=== PATIENT | male | born 1980 | race Caucasian/White ===

== ENCOUNTER 2018-03-25 11:41 | Outpatient (CLI) | payer MEDICAID, SELFPAY ==
[2018-03-25 12:49] LABS: ALT 94 U/L (12-78); AST 89 U/L (15-37); Albumin 3.7 g/dL (3.4-5.0); Alkaline Phosphatase 80 U/L (46-116); Anion Gap 5.4 mmol/L (3-11); BUN 9 mg/dL (7-18); Bilirubin, Total 0.5 mg/dL (0.2-1.0); CO2 29.6 mmol/L (21.0-32.0); CREATININE 0.74 mg/dL (0.70-1.30); Calcium 9.1 mg/dL (8.5-10.1); Chloride 103 mmol/L (98-107); Glucose 89 mg/dL (70-100); Potassium 4.8 mmol/L (3.5-5.1); Sodium 138 mmol/L (136-145)
[2018-05-07 09:30] LABS: HCV RNA Detection Quantitative Undetected IU/mL (UNDECT)
== END 2018-03-25 12:01 ==
PROVIDERS: PCP Emergency Medicine; Visit Provider Nurse Practitioner Family
DX: B18.2 Chronic viral hepatitis C (principal)
CPT/HCPCS: 36415; 80053; 86803; 87522

== ENCOUNTER 2018-04-11 17:41 | Emergency (ER) | payer MEDICAID, SELFPAY ==
[2018-04-11 17:47] VITALS: BP 143/75; PULSE 91; RESP 14; TEMP 37.4; O2SAT 99
[2018-04-11] MEDS: Clindamycin 150 MG CAP 450 MG PO ×2 (18:31→18:37)
--- NOTE | 2018-04-11 18:39 | W.ED.GENAD ---
Discharge Plan Disposition Patient Disposition: HOME Condition: Good Discharge Details Chief Complaint: Cellulitis Clinical Impression: Cellulitis Primary Care Provider: Bharat Mccauley ED Provider: Domenico Escamilla Home Meds and New Rx's Prescriptions: New clindamycin HCl 150 mg capsule 450 mg PO TID 7 Days Qty: 63 RF: 0 Discharge Instructions Instructions: Cellulitis (ED) Additional Instructions: Please take the clindamycin as directed. If you notice any worsening of your symptoms, or any new symptoms such as spreading of the redness, worsening pain, vomiting, diarrhea, fever, chills, shortness of breath, chest pain, numbness, weakness, or fainting , please return immediately to the emergency department for reevaluation. Please follow up with your primary care provider as soon as possible for reassessment and reevaluation. As always, it was a pleasure participating in your medical care today. Referrals: Bharat Mccauley, [Primary Care Provider] - Medical Decision Making This is a 38-year-old male who presents for evaluation of abscesses. On his right lower extremity he demonstrates 2 areas of cellulitis the lateral aspect of his right knee, and distal to this on his mid montes. Patient has no fever, vital signs are stable, no tachycardia. Bedside ultrasound demonstrates very minimal fluid collection, no large fluctuant abscess. With no active drainage, small needle was inserted into each abscess after cleaning and sterilizing the skin, the small amount of purulent discharge was exuded, and this was cultured. No evidence of fluctuance on repeat exam. Patient does demonstrate mild spreading cellulitis surrounding these. He denies any trauma, he does have a history of abscesses in the past that which have responded to doxycycline. I do feel that the patient is at risk for MRSA with his history of IV drug use, although he denies any needle injection in these locations. Patient denies any other systemic symptoms. Patient will be started on clindamycin, he will be given his first dose here, a second dose to go home with, and then a prescription for continued home use. I had a long discussion with him regarding red flags which to return, including the importance of close and prompt return if you notice any spreading of redness outside the area of tracing that we performed on his redness. I have extensively reviewed the treatment plan and discharge instructions with the patient. I have addressed all patient concerns at this time. The patient was made aware of what symptoms to monitor for that would warrant a return to the emergency department. Discussed the plan with the patient, they demonstrate verbal understanding and agreement with our assessment and plan at this time. HPI General Date/Time Provider Initiated Documentation: 04/11/18 17:42. HPI Narrative: This is a 38-year-old male with a past medical history of IV and illicit drug use who presents today for abscess on his right lower extremity. He has had abscesses in the past, is use doxycycline for treatment of these. Patient states that for the last 3-4 days he has noted redness and swelling on his right lower extremity, 2 locations in particular one over the lateral aspect of his right knee and the second over his montes. He did state that he tried to pick at it and was able to get off some drainage, but because of the redness he decided to come in for further evaluation. He denies any fever, he does admit to pain over those locations but no pain in the knee itself. He denies any history of HIV, and he denies any injection in those areas. Patient denies any other complaints at this time, including numbness, tingling, weakness, chest pain, shortness of breath. Patient denies any recent surgeries. Related Data Home Medications Medication Instructions Recorded Confirmed clindamycin HCl 450 mg PO TID 7 Days #63 cap 04/11/18 Previous Rx's Medication Instructions Recorded clindamycin HCl 450 mg PO TID 7 Days #63 cap 04/11/18 Allergies Allergy/AdvReac Type Severity Reaction Status Date / Time No Known Allergies Allergy Unverified 04/11/18 17:49 General Stated Complaint: Cellulitis BERNICE: 3 Review of Systems Review of Systems All systems reviewed & are unremarkable except as noted in HPI and below [facility] Social History Smoking/Tobacco Use Status: Current every day Exam Narrative Exam Narrative: 1.Const: Well-nourished, Well-developed, appearing stated age 2.Eyes: PERRL, no conjunctival injection, and symmetrical lids. 3.ENT: Atraumatic external nose and ears. Moist MM. Neck: Symmetric, trachea midline, No thyromegaly. 4.CVS: +S1/S2, No murmurs or gallops. Peripheral pulses 2+ and equal in all extremities. Brisk capillary refill in all extremities. 5.RESP: Unlabored respiratory effort. Clear to auscultation bilaterally. No wheezes rales or rhonchi 6.GI: Soft, Nontender/Nondistended, No hepatosplenomegaly. No guarding or rebound. 7.MSK: Normocephalic/Atraumatic, Extremities w/o deformity or ttp No cyanosis or clubbing, Normal movement of all extremities including of the right knee. No significant tenderness with movement. He does have tenderness on palpation of the cellulitic lesion itself on the lateral aspect of the right knee. There is also evidence of cellulitis in the mid montes. There is a small eschar in this area, where the patient had previously tried to pick away. No active drainage at this time. Minimal fluctuance noted over both locations. No signs of large abscess. The area has about 6 cm of erythema surrounding the abscess free dislocation. Compartments are soft. Capillary refill is brisk in all distal extremities. 8.Skin: Warm, Dry. Please see musculoskeletal for description of cellulitis. 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 Sensation grossly intact, no focal neurologic deficits. 10.Psych: (AAO) x3. Appropriate mood and affect Course Vital Signs Temperature 37.4 C 04/11/18 17:47 Pulse 91 H 04/11/18 17:47 Respiratory Rate 14 04/11/18 17:47 Blood Pressure 143/75 H 04/11/18 17:47 Pulse Oximetry 99 04/11/18 17:47 Temperature 37.4 C 04/11/18 17:47 Temperature Source Temporal Artery Scan 04/11/18 17:47 Pulse 91 H 04/11/18 17:47 Respiratory Rate 14 04/11/18 17:47 Respiratory Effort Non-Labored 04/11/18 17:48 Blood Pressure 143/75 H 04/11/18 17:47 Blood Pressure Position Sitting 04/11/18 17:47 Pulse Oximetry 99 04/11/18 17:47 Oxygen Delivery Method Room Air 04/11/18 17:47 Oxygen Flow Rate 0 04/11/18 17:47 Pain Level 6 04/11/18 17:47 Lab/Test Results Lab/Test Results: 04/11/18 18:33 Knee - Right Wound Culture - Pending 04/11/18 18:33 Knee - Right Gram Stain - Pending
== END 2018-04-11 18:54 | disposition home or self-care (01) ==
PROVIDERS: Emergency Provider Student in an Organized Health Care Education/Training Program; PCP Emergency Medicine
DX: L03.115 Cellulitis of right lower limb (principal)
CPT/HCPCS: 87077; 99283; 87070; 87186; 87205

== ENCOUNTER 2020-06-08 15:53 | Outpatient (REF) | payer MEDICAID, SELFPAY ==
[2020-06-08 22:26] LABS: Abs Immature Grans 0.03 10^3/uL (0.0-0.06); Absolute Basophil Count 0.08 10^3/uL (0.0-0.2); Absolute Lymphocyte Count 2.42 10^3/uL (1.2-3.4); Absolute Monocyte Count 0.42 10^3/uL (0.1-0.8); Absolute Neutrophil Count 3.69 10^3/uL (1.2-6.7); Basophils % 1.2; Eosinophils % 4.3; HCT 39.3 % (40.0-50.0); HGB 13.6 g/dL (13.5-17.5); Immature Grans % 0.4; Lymphocytes % 34.9; MCH 30.7 pg (27.0-33.0); MCHC 34.6 % (32.0-36.0); MCV 88.7 fL (80-95); MPV 11.7 fL (8.0-11.0); Monocytes % 6.1; Neutrophils % 53.1; Nucleated RBC 0 %; Platelet Count 224 10^3/uL (130-400); RBC 4.43 10^6/uL (4.36-5.78); RDW 12.3 % (11.8-14.1); RDW-SD 39.8 fL; WBC 6.94 10^3/uL (4.4-10.8)
[2020-06-08 22:41] LABS: ALT 34 U/L (16-63); AST 56 U/L (15-37); Albumin 4.2 g/dL (3.4-5.0); Alkaline Phosphatase 71 U/L (46-116); BUN 16 mg/dL (7-18); Chloride 104 mmol/L (98-107); Glucose 79 mg/dL (74-106); Potassium 4.4 mmol/L (3.5-5.1); Sodium 140 mmol/L (136-145); TSH (W/Ref FT4) 1.97 uIU/mL (0.36-3.74); Total Protein 7.5 g/dL (6.4-8.2)
[2020-06-10 12:36] LABS: Hepatitis A Antibody IgM Negative (Negative); Hepatitis B Core Antibody Positive (Negative); Hepatitis B surface Ag Positive (Negative); Hepatitis C Ab w Rflx HCV PCR Reactive (Negative)
[2020-06-11 13:51] LABS: HCV RNA Qualitative Undetected (Undetected)
[2020-06-11 22:09] LABS: HBc IgM Ab, S Negative (Negative)
== END 2020-06-08 15:54 | disposition home or self-care (01) ==
LOC: NCHCN 15:53
PROVIDERS: Visit Provider Nurse Practitioner Family
DX: R53.83 Other fatigue (principal); M25.511 Pain in right shoulder; F19.21 Other psychoactive substance dependence, in remission
CPT/HCPCS: 80053; 86704; 86709; 86803; 87340; 87522; 84443; 85025; 86705

== ENCOUNTER 2021-09-14 04:02 | Emergency (ER) | payer MEDICAID, SELFPAY ==
[2021-09-14 04:14] VITALS: BP 153/93; PULSE 100; RESP 18; TEMP 36.9; O2SAT 99
--- NOTE | 2021-09-14 04:25 | ED.GENADUL_ITS ---
Discharge Plan Disposition Patient Disposition: HOME Condition: Good Discharge Details Clinical Impression: Rash Primary Care Provider: Unknown,Unknown ED Provider: Domenico Escamilla Home Meds and New Rx's Prescriptions: New diphenhydramine HCl [Benadryl] 25 mg capsule 25 mg PO Q6H Qty: 100 0RF loratadine [Loradamed] 10 mg tablet 10 mg PO DAILY Qty: 10 0RF clotrimazole-betamethasone 1-0.05 % lotion 1 applic topical BID Qty: 30 0RF ivermectin 3 mg tablet 13,608 mcg PO ONCE 2 Days Qty: 9 0RF Rx Instructions: For 4.5 tablets on first day, and then take the remainder of the tablet 2 weeks later. Continued gabapentin 800 mg tablet 800 tab PO QID Label Comments: TAKE 1 TABLET BY MOUTH FOUR TIMES DAILY olanzapine 15 mg tablet 1 tab PO PRN PRN Label Comments: TAKE ONE TABLET BY MOUTH AT BEDTIME dexmethylphenidate 40 mg capsule,ER biphasic 50-50 40 cap PO DAILY Label Comments: TAKE ONE CAPSULE BY MOUTH ONCE A DAY buprenorphine-naloxone [Suboxone] 4-1 mg film 1 film sublingual DAILY Label Comments: PLACE ONE FILM UNDER THE TONGUE EVERY DAY Discharge Instructions Instructions: Acute Rash (ED) Additional Instructions: At this time your symptoms are concerning for dermatitis. It is uncertain as to what the exact cause/etiology of the rash is at this time. Please take the Benadryl and loratadine as directed. You have also been given a prescription for cream. Please apply to the affected areas. Please stop scraping the skin to allow those areas to heal. If your symptoms do not resolve after 5 to 6 days of this treatment, or you develop multiple new lesions, there may be a chance that it could be an infection related to bedbug or other small parasites. If you do not have improvement after 5 to 6 days, take the ivermectin as directed.. If you still do not have any improvement of your symptoms please return for reassessment reevaluation. Please wash all of your linens in hot water and dry them in the dryer on high heat. If you notice any worsening of your symptoms, or any new symptoms such as vomiting, diarrhea, fever, chills, shortness of breath, chest pain, numbness, weakness, or fainting , please return immediately to the emergency department for reevaluation. Please follow up with your primary care provider as soon as possible for reassessment and reevaluation. As always, it was a pleasure participating in your medical care today. Medical Decision Making This is a 41-year-old male with a past medical history of methadone use, who presents today for evaluation of rash. Patient states that for the last 2 to 3 days he has noticed a rash that has been present over his arms legs and somewhat on his chest. He states that it is slightly itchy. He states that if he peels off the top layer of the skin he is concerned that occasionally he might see a worm underneath. The patient states that he has been scratching off the top layer of skin for each of these lesions that they pop up. He denies any vesicles. He denies any oral lesions or genital lesions. He denies any new soaps or creams. Patient does state that he is now living in a camper which he bought for a really cheap malave, and it might have sketch stuff in it. He denies any new animals. He denies any other significant others with similar lesions. 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 He denies fever or chills. He denies any IV or illicit drug use. He denies any needles in his locations. He denies any recent foreign travel to [facility] [facility] or [place]. No other complaints at this time. No other modifying factors. Physical exam demonstrates 30 or 40 scattered lesions over his arms primarily, and a few on his legs and shoulders and upper chest. Lesions are difficult to fully describe, the majority of them have the top layer of skin completely scraped off which was self-induced. However there do appear to be a few original lesion which looked more like a contact dermatitis with a slight scabbed area over top. Each lesion is about 5 mm in diameter. No bleeding or surrounding erythema. Differential includes a contact dermatitis secondary to his extensive work outside as a pattern appears to be mostly located on his upper extremities. However with the new camper that he now lives in, there is certainly risk for exposure to bedbugs and much less likely scabies. There does not appear to be any significant rash in the intertriginous areas. Symptoms appear inconsistent with syphilis. At this time we will recommend antihistamine orally, and will give a steroid/fungal dual action cream. Recommend treatment with his for 5 to 7 days. If no improvement is noted, we will give ivermectin for potential parasitic/scabies treatment but I did tell the patient that I would recommend reassessment before this is the rash changes or develops any other characteristics. No current clinical evidence of staph scalded skin syndrome, erythema multiforme, erythema migrans, toxic epidermal necrolysis, Roman-Riley syndrome, Kawasaki-like rash, meningococcemia, pemphigus vulgaris, or necrotizing fasciitis. I have extensively reviewed the treatment plan and discharge instructions with the patient. I have addressed all patient concerns at this time. The patient was made aware of what symptoms to monitor for that would warrant a return to the emergency department. Discussed the plan with the patient, they demonstrate verbal understanding and agreement with our assessment and plan at this time. The documentation in this chart was dictated using [employer] dictation software. Please excuse any dictation errors. HPI General Date/Time Provider Initiated Documentation: 09/14/21 04:04 . HPI Narrative: This is a 41-year-old male with a past medical history of methadone use, who presents today for evaluation of rash. Patient states that for the last 2 to 3 days he has noticed a rash that has been present over his arms legs and somewhat on his chest. He states that it is slightly itchy. He states that if he peels off the top layer of the skin he is concerned that occasionally he might see a worm underneath. The patient states that he has been scratching off the top layer of skin for each of these lesions that they pop up. He denies any vesicles. He denies any oral lesions or genital lesions. He denies any new soaps or creams. Patient does state that he is now living in a camper which he bought for a really cheap mal[place], and it might have sketch stuff in it. He denies any new animals. He denies any other significant others with similar lesions. 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 He denies fever or chills. He denies any IV or illicit drug use. He denies any needles in his locations. He denies any recent foreign travel to [facility] [facility] or [place] already been [place]. No other complaints at this time. No other modifying factors. Related Data Home Medications Medication Instructions Recorded Confirmed buprenorphine 4 mg-naloxone 1 mg 1 film sublingual DAILY 09/14/21 09/14/21 sublingual film (Suboxone) clotrimazole-betamethasone 1 1 applic topical BID #30 mL 09/14/21 %-0.05 % lotion dexmethylphenidate 40 mg 40 cap PO DAILY 09/14/21 09/14/21 capsule,extended release [id number] diphenhydramine HCl 25 mg capsule 25 mg PO Q6H #100 caps 09/14/21 (Benadryl) gabapentin 800 mg tablet 800 tab PO QID 09/14/21 09/14/21 ivermectin 3 mg tablet 13,608 mcg PO ONCE 2 days #9 tabs 09/14/21 loratadine 10 mg tablet (Loradamed) 10 mg PO DAILY #10 tabs 09/14/21 olanzapine 15 mg tablet 1 tab PO PRN PRN 09/14/21 09/14/21 Previous Rx's Medication Instructions Recorded clotrimazole-betamethasone 1 1 applic topical BID #30 mL 09/14/21 %-0.05 % lotion diphenhydramine HCl 25 mg capsule 25 mg PO Q6H #100 caps 09/14/21 (Benadryl) ivermectin 3 mg tablet 13,608 mcg PO ONCE 2 days #9 tabs 09/14/21 loratadine 10 mg tablet (Loradamed) 10 mg PO DAILY #10 tabs 09/14/21 Allergies Allergy/AdvReac Type Severity Reaction Status Date / Time No Known Allergies Allergy Unverified 09/14/21 04:25 General Stated Complaint: RashLesion BERNICE: 4 Review of Systems All systems reviewed & are unremarkable except as noted in HPI and below PFSH All Active Problems Rash (Acute) Social History Smoking/Tobacco Use Status: Current every day Smoking risk assessment performed?: Yes Alcohol Intake: former Drug use: Never Substance use type: does not use and former substance user Do you feel safe at home: Yes Do you feel safe in your relationship?: Yes Exam Narrative Exam Narrative: 1.Const: Well-nourished, Well-developed, appearing stated age 2.Eyes: PERRL, no conjunctival injection, and symmetrical lids. 3.ENT: Atraumatic external nose and ears. Moist MM. Neck: Symmetric, trachea midline, No thyromegaly. 4.CVS: +S1/S2, No murmurs or gallops. Peripheral pulses 2+ and equal in all extremities. Brisk capillary refill in all extremities. 5.RESP: Unlabored respiratory effort. Clear to auscultation bilaterally. No wheezes rales or rhonchi 6.GI: Soft, Nontender/Nondistended, No hepatosplenomegaly. No guarding or rebound. 7.MSK: Normocephalic/Atraumatic, Extremities w/o deformity or ttp No cyanosis or clubbing, Normal movement of all extremities 8.Skin: Warm, Dry. Patient demonstrates about 30 or 40 scattered lesions over his arms primarily, and a few on his legs and shoulders and upper chest. Lesions are difficult to fully describe, the majority of them have the top layer of skin completely scraped off which was self-induced. However there do appear to be a few original lesion which looked more like a contact dermatitis with a slight scabbed area over top. Each lesion is about 5 mm in diameter. No b leeding or surrounding erythema. Negative Nikolsky sign. No large vesicles or bulla. No palpable purpura. No oral lesions. No mucosal lesions. No genital lesions. No evidence of severe cellulitis. No evidence of vaccine preventable rash. 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 Sensation grossly intact, no focal neurologic deficits. 10.Psych: (AAO) x3. Appropriate mood and affect Course Vital Signs Vital signs: Vital Signs Temperature 36.9 C 09/14/21 04:14 Pulse 100 H 09/14/21 04:14 Respiratory Rate 18 09/14/21 04:14 Blood Pressure 153/93 H 09/14/21 04:14 Pulse Oximetry 99 09/14/21 04:14 Temperature 36.9 C 09/14/21 04:14 Pulse 100 H 09/14/21 04:14 Respiratory Rate 18 09/14/21 04:14 Blood Pressure 153/93 H 09/14/21 04:14 Pulse Oximetry 99 09/14/21 04:14 Pain Level 0 09/14/21 04:14
== END 2021-09-14 04:48 | disposition home or self-care (01) ==
PROVIDERS: Emergency Provider Student in an Organized Health Care Education/Training Program
DX: R21 Rash and other nonspecific skin eruption (principal)
CPT/HCPCS: 99283

== ENCOUNTER 2021-09-14 22:39 | Emergency (ER) | payer MEDICAID, SELFPAY ==
[2021-09-14 23:07] VITALS: BP 136/85; PULSE 79; RESP 18; TEMP 36.1; O2SAT 98
--- NOTE | 2021-09-14 23:40 | ED.GENADUL_ITS ---
Discharge Plan Discharge Details Chief Complaint: RashLesion Primary Care Provider: Unknown,Unknown ED Provider: Randy Fontaine Home Meds and New Rx's Prescriptions: No Action gabapentin 800 mg tablet 800 tab PO QID Label Comments: TAKE 1 TABLET BY MOUTH FOUR TIMES DAILY olanzapine 15 mg tablet 1 tab PO PRN PRN Label Comments: TAKE ONE TABLET BY MOUTH AT BEDTIME dexmethylphenidate 40 mg capsule,ER biphasic 50-50 40 cap PO DAILY Label Comments: TAKE ONE CAPSULE BY MOUTH ONCE A DAY buprenorphine-naloxone [Suboxone] 4-1 mg film 1 film sublingual DAILY Label Comments: PLACE ONE FILM UNDER THE TONGUE EVERY DAY diphenhydramine HCl [Benadryl] 25 mg capsule 25 mg PO Q6H Qty: 100 0RF loratadine [Loradamed] 10 mg tablet 10 mg PO DAILY Qty: 10 0RF clotrimazole-betamethasone 1-0.05 % lotion 1 applic topical BID Qty: 30 0RF ivermectin 3 mg tablet 13,608 mcg PO ONCE 2 Days Qty: 9 0RF Rx Instructions: For 4.5 tablets on first day, and then take the remainder of the tablet 2 weeks later. HPI General Date/Time Provider Initiated Documentation: 09/14/21 23:06 . HPI Narrative: My initial evaluation of the patient was in the triage room. Following this evaluation Patient with examined him once history is complete. I looked for the patient three times in the waiting room but it appears that he had left. review of Dr Escamilla's note from earlier today, reveals that his HPI and ROS did nmot change. The examinatin of his skin in the TR was also c/w Dr Escamilla's eval. Patient LBCT. The Related Data Home Medications Medication Instructions Recorded Confirmed buprenorphine 4 mg-naloxone 1 mg 1 film sublingual DAILY 09/14/21 09/14/21 sublingual film (Suboxone) clotrimazole-betamethasone 1 1 applic topical BID #30 mL 09/14/21 %-0.05 % lotion dexmethylphenidate 40 mg 40 cap PO DAILY 09/14/21 09/14/21 capsule,extended release [id number] diphenhydramine HCl 25 mg capsule 25 mg PO Q6H #100 caps 09/14/21 (Benadryl) gabapentin 800 mg tablet 800 tab PO QID 09/14/21 09/14/21 ivermectin 3 mg tablet 13,608 mcg PO ONCE 2 days #9 tabs 09/14/21 loratadine 10 mg tablet (Loradamed) 10 mg PO DAILY #10 tabs 09/14/21 olanzapine 15 mg tablet 1 tab PO PRN PRN 09/14/21 09/14/21 Previous Rx's Medication Instructions Recorded clotrimazole-betamethasone 1 1 applic topical BID #30 mL 09/14/21 %-0.05 % lotion diphenhydramine HCl 25 mg capsule 25 mg PO Q6H #100 caps 09/14/21 (Benadryl) ivermectin 3 mg tablet 13,608 mcg PO ONCE 2 days #9 tabs 09/14/21 loratadine 10 mg tablet (Loradamed) 10 mg PO DAILY #10 tabs 09/14/21 Allergies Allergy/AdvReac Type Severity Reaction Status Date / Time No Known Allergies Allergy Unverified 09/14/21 23:12 General Stated Complaint: RashLesion BERNICE: 4 PFSH All Active Problems Rash (Acute) Social History Smoking/Tobacco Use Status: Current every day Tobacco Type: cigarettes Smoking risk assessment performed?: Yes Alcohol Intake: former Drug use: Never Substance use type: does not use and former substance user Details: Patient is on Suboxone Do you feel safe at home: Yes Do you feel safe in your relationship?: Yes Course Vital Signs Vital signs: Vital Signs Temperature 36.1 C L 09/14/21 23:07 Pulse 79 09/14/21 23:07 Respiratory Rate 18 09/14/21 23:07 Blood Pressure 136/85 09/14/21 23:07 Pulse Oximetry 98 09/14/21 23:07 Temperature 36.1 C L 09/14/21 23:07 Temperature Source Temporal Artery Scan 09/14/21 23:07 Pulse 79 09/14/21 23:07 Respiratory Rate 18 09/14/21 23:07 Respiratory Effort Non-Labored 09/14/21 23:10 Blood Pressure 136/85 09/14/21 23:07 Blood Pressure Position Sitting 09/14/21 23:07 Pulse Oximetry 98 09/14/21 23:07 Oxygen Delivery Method Room Air 09/14/21 23:07 Oxygen Flow Rate 0 09/14/21 23:07 Pain Level 0 09/14/21 23:07
== END 2021-09-14 23:43 ==
PROVIDERS: Emergency Provider Emergency Medicine
DX: L98.8 Other specified disorders of the skin and subcutaneous tissue (principal); Z53.29 Procedure and treatment not carried out because of patient's decision for other reasons

== ENCOUNTER 2021-09-24 23:20 | Emergency (ER) | payer MEDICAID, SELFPAY ==
[2021-09-24 23:25] VITALS: BP 152/90; PULSE 102; RESP 16; TEMP 36.8; O2SAT 99
--- NOTE | 2021-09-24 23:50 | ED.GENADUL_ITS ---
Discharge Plan Disposition Patient Disposition: HOME Condition: Good Discharge Details Clinical Impression: Rash Primary Care Provider: Unknown,Unknown ED Provider: Domenico Escamilla Home Meds and New Rx's Prescriptions: New permethrin 5 % cream 1 applic topical Q14D Qty: 60 0RF Rx Instructions: apply second treatment 14 days after first treatment if live lice remain ivermectin 3 mg tablet 12 mg PO ONCE 1 Days Qty: 4 0RF No Action gabapentin 800 mg tablet 800 tab PO QID Label Comments: TAKE 1 TABLET BY MOUTH FOUR TIMES DAILY olanzapine 15 mg tablet 1 tab PO PRN PRN Label Comments: TAKE ONE TABLET BY MOUTH AT BEDTIME dexmethylphenidate 40 mg capsule,ER biphasic 50-50 40 cap PO DAILY Label Comments: 40 mg in am and 25 mg in afternnon buprenorphine-naloxone [Suboxone] 4-1 mg film 1 film sublingual DAILY Label Comments: PLACE ONE FILM UNDER THE TONGUE EVERY DAY diphenhydramine HCl [Benadryl] 25 mg capsule 25 mg PO Q6H Qty: 100 0RF loratadine [Loradamed] 10 mg tablet 10 mg PO DAILY Qty: 10 0RF clotrimazole-betamethasone 1-0.05 % lotion 1 applic topical BID Qty: 30 0RF Discharge Instructions Instructions: Acute Rash (ED) Additional Instructions: Please take the next dose of ivermectin in 2 weeks. It has been sent to your pharmacy. Please use the permethrin cream as directed. It is also been sent to your pharmacy. This is the antiparasitic cream. You have been given a tube of mupirocin ointment. Please apply this to each lesion every day to prevent any bacterial infection. If you still have a persistent rash after 2-week you will need to see a remote advisor for a skin biopsy for further evaluation. If you notice any worsening of your symptoms, or any new symptoms such as vomiting, diarrhea, fever, chills, shortness of breath, chest pain, numbness, weakness, or fainting , please return immediately to the emergency department for reevaluation. Please follow up with your primary care provider as soon as possible for reassessment and reevaluation. As always, it was a pleasure participating in your medical care today. Medical Decision Making This is a 41-year-old male who presents today for evaluation of rash. 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 Patient was given a steroid antifungal cream and this did not improve his symptoms. He was also given ivermectin orally, and he stated that this notably resolved his rash. Unfortunately after taking this he went to his girlfriend's house, where he thought the initial exposure was from. Shortly after visiting his girlfriend's house his rash recurred. He took the second dose of ivermectin today prior to arrival. He presents for continued rash. He denies any changes otherwise. No other complaints. No oral lesions. No genital complaint Exam demonstrate presence of similar rashes when he first presented. No signs of significant change in nature of the rash. No new location for the rash in regards to general body areas. As the patient had a notable improvement of his symptoms after the oral ivermectin, and unfortunately developed recurrence of his symptoms after visiting his girlfriend placed dwelling, I do feel that continued ivermectin therapy may be indicated in this scenario. I recommended to the patient that he cannot return to his girlfriend's place of dwelling until it has been cleaned of all insects, fleas, or mites. We will give permethrin ointment for home use as well. Will give topical mupirocin ointment for application to each lesion to prevent superinfection. I have extensively reviewed the treatment plan and discharge instructions with the patient. I have addressed all patient concerns at this time. The patient was made aware of what symptoms to monitor for that would warrant a return to the emergency department. Discussed the plan with the patient, they demonstrate verbal understanding and agreement with our assessment and plan at this time. The documentation in this chart was dictated using [employer] dictation software. Please excuse any dictation errors. HPI General Date/Time Provider Initiated Documentation: 09/24/21 23:32 . HPI Narrative: This is a 41-year-old male who presents today for evaluation of rash. 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 Patient was given a steroid antifungal cream and this did not improve his symptoms. He was also given ivermectin orally, and he stated that this notably resolved his rash. Unfortunately after taking this he went to his girlfriend's house, where he thought the initial exposure was from. Shortly after visiting his girlfriend's house his rash recurred. He took the second dose of ivermectin today prior to arrival. He presents for continued rash. He denies any changes otherwise. No other complaints. No oral lesions. No genital complaint Related Data Home Medications Medication Instructions Recorded Confirmed buprenorphine 4 mg-naloxone 1 mg 1 film sublingual DAILY 09/14/21 09/14/21 sublingual film (Suboxone) clotrimazole-betamethasone 1 1 applic topical BID #30 mL 09/14/21 %-0.05 % lotion dexmethylphenidate 40 mg 40 cap PO DAILY 09/14/21 09/14/21 capsule,extended release [id number] diphenhydramine HCl 25 mg capsule 25 mg PO Q6H #100 caps 09/14/21 (Benadryl) gabapentin 800 mg tablet 800 tab PO QID 09/14/21 09/14/21 loratadine 10 mg tablet (Loradamed) 10 mg PO DAILY #10 tabs 09/14/21 olanzapine 15 mg tablet 1 tab PO PRN PRN 09/14/21 09/14/21 ivermectin 3 mg tablet 12 mg PO ONCE 1 day #4 tabs 09/24/21 permethrin 5 % topical cream 1 applic topical Q14D 2 doses #60 09/24/21 grams Previous Rx's Medication Instructions Recorded clotrimazole-betamethasone 1 1 applic topical BID #30 mL 09/14/21 %-0.05 % lotion diphenhydramine HCl 25 mg capsule 25 mg PO Q6H #100 caps 09/14/21 (Benadryl) loratadine 10 mg tablet (Loradamed) 10 mg PO DAILY #10 tabs 09/14/21 ivermectin 3 mg tablet 12 mg PO ONCE 1 day #4 tabs 09/24/21 permethrin 5 % topical cream 1 applic topical Q14D 2 doses #60 09/24/21 grams Allergies Allergy/AdvReac Type Severity Reaction Status Date / Time No Known Allergies Allergy Unverified 09/14/21 23:12 General Stated Complaint: RashLesion BERNICE: 5 Review of Systems All systems reviewed & are unremarkable except as noted in HPI and below PFSH All Active Problems Rash (Acute) Social History Smoking/Tobacco Use Status: Current every day Tobacco Type: cigarettes Smoking risk assessment performed?: Yes Alcohol Intake: former Drug use: Never Substance use type: does not use and former substance user Details: Patient is on Suboxone Do you feel safe at home: Yes Do you feel safe in your relationship?: Yes Exam Narrative Exam Narrative: 1.Const: Well-nourished, Well-developed, appearing stated age 2.Eyes: PERRL, no conjunctival injection, and symmetrical lids. 3.ENT: Atraumatic external nose and ears. Moist MM. Neck: Symmetric, trachea midline, No thyromegaly. 4.CVS: +S1/S2, No murmurs or gallops. Peripheral pulses 2+ and equal in all extremities. Brisk capillary refill in all extremities. 5.RESP: Unlabored respiratory effort. Clear to auscultation bilaterally. No wheezes rales or rhonchi 6.GI: Soft, Nontender/Nondistended, No hepatosplenomegaly. No guarding or rebound. 7.MSK: Normocephalic/Atraumatic, Extremities w/o deformity or ttp No cyanosis or clubbing, Normal movement of all extremities 8.Skin: Warm, Dry. Skin demonstrates varying stages of lesions on the arms and legs. They appear notably picked out. Patient is visibly scraping at the skin in those areas. No evidence of lesion in the intertriginous areas. No oral lesions. There are few scarred lesions that are present on the patient's arms, but appear to be well-healed. Small amount of minimal erythema surrounding each . No large superinfection. Negative Nikolsky sign. No large vesicles or bulla. No palpable purpura. No oral lesions. No mucosal lesions. No evidence of severe cellulitis. No evidence of vaccine preventable rash. 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 Sensation grossly intact, no focal neurologic deficits. 10.Psych: (AAO) x3. Appropriate mood and affect Course Vital Signs Vital signs: Vital Signs Temperature 36.8 C 09/24/21 23:25 Pulse 102 H 09/24/21 23:25 Respiratory Rate 16 09/24/21 23:25 Blood Pressure 152/90 H 09/24/21 23:25 Pulse Oximetry 99 09/24/21 23:25 Temperature 36.8 C 09/24/21 23:25 Temperature Source Skin 09/24/21 23:25 Pulse 102 H 09/24/21 23:25 Respiratory Rate 16 09/24/21 23:25 Respiratory Effort Non-Labored 09/24/21 23:29 Blood Pressure 152/90 H 09/24/21 23:25 Pulse Oximetry 99 09/24/21 23:25 Pain Level 0 09/24/21 23:25
[2021-09-25] MEDS: Mupirocin 2% 15 GM TUBE TP (00:24)
== END 2021-09-25 00:27 | disposition home or self-care (01) ==
PROVIDERS: Emergency Provider Student in an Organized Health Care Education/Training Program
DX: R21 Rash and other nonspecific skin eruption (principal)
CPT/HCPCS: 99283

== ENCOUNTER 2021-10-22 22:34 | Emergency (ER) | payer MEDICAID, SELFPAY ==
[2021-10-22 22:39] VITALS: BP 124/73; PULSE 104; RESP 19; TEMP 36.8; O2SAT 96
--- NOTE | 2021-10-22 22:49 | ED.GENADUL_ITS ---
Discharge Plan Disposition Patient Disposition: HOME Condition: Stable Discharge Details Clinical Impression: Rash Primary Care Provider: Leslie Shane ED Provider: Lars Bee Home Meds and New Rx's Prescriptions: Continued gabapentin 800 mg tablet 800 tab PO QID Label Comments: TAKE 1 TABLET BY MOUTH FOUR TIMES DAILY olanzapine 15 mg tablet 1 tab PO PRN PRN Label Comments: TAKE ONE TABLET BY MOUTH AT BEDTIME dexmethylphenidate 40 mg capsule,ER biphasic 50-50 40 cap PO DAILY Label Comments: 40 mg in am and 25 mg in afternnon buprenorphine-naloxone [Suboxone] 4-1 mg film 1 film sublingual DAILY Label Comments: PLACE ONE FILM UNDER THE TONGUE EVERY DAY diphenhydramine HCl [Benadryl] 25 mg capsule 25 mg PO Q6H Qty: 100 0RF loratadine [Loradamed] 10 mg tablet 10 mg PO DAILY Qty: 10 0RF clotrimazole-betamethasone 1-0.05 % lotion 1 applic topical BID Qty: 30 0RF permethrin 5 % cream 1 applic topical Q14D Qty: 60 0RF Rx Instructions: apply second treatment 14 days after first treatment if live lice remain Discharge Instructions Instructions: Acute Rash (ED) Additional Instructions: Please followup with dermatology. Call Sunday for an appointment. Please contact your primary care physician to arrange follow-up. Return to the ER immediately for any worsening or new concerning symptoms. Referrals: Sami Kelley MD [ CONSULTING PHYSICIAN] - Leslie Shane [Primary Care Provider] - Medical Decision Making 2300 --41-year-old male smoker with history of hepatitis C here with rash. Patient has sparsely distributed shallow ulcers in various stages of healing on his upper extremities bilaterally as well as back and scalp. No significant surrounding erythema. Patient was patient seen here twice last month for the same and was treated with permethrin and ivermectin without resolution. Plan for screening diagnostic labs including syphilis and tick panel as well as general labs. Patient provided informed refusal of diagnostic lab work-up. Plan for discharge with outpatient follow-up with dermatology. I will asked the care management assist in arranging timely follow-up. A medical screening exam was performed today. No acute life-threatening medical condition identified. Patient stable for discharge. Patient left on his own accord prior to receiving discharge instructions. HPI General Mode of arrival: ambulatory . Date/Time Provider Initiated Documentation: 10/22/21 22:40 . Limitations to Documentation: no limitations . Information obtained by: patient . HPI Narrative: 41-year-old male presents with chief complaint of rash. Patient notes he had a rash for over about. He gets lesions all over his body. Most concerning to him right now was adjacent to his left ear. Patient is convinced that he has some sort of parasitic infection that he thinks he is getting from spruce trees. Patient was seen here about a month ago and treated with ivermectin as well as permethrin. He thinks the permethrin may have helped although he has been applying this to some of his lesions without any improvement. He has no associated fever. No chest pain or shortness of breath. No abdominal pain. Patient denies tick bites. He denies drug use. Related Data Home Medications Medication Instructions Recorded Confirmed buprenorphine 4 mg-naloxone 1 mg 1 film sublingual DAILY 09/14/21 10/22/21 sublingual film (Suboxone) clotrimazole-betamethasone 1 1 applic topical BID #30 mL 09/14/21 10/22/21 %-0.05 % lotion dexmethylphenidate 40 mg 40 cap PO DAILY 09/14/21 10/22/21 capsule,extended release [id number] diphenhydramine HCl 25 mg capsule 25 mg PO Q6H #100 caps 09/14/21 10/22/21 (Benadryl) gabapentin 800 mg tablet 800 tab PO QID 09/14/21 10/22/21 loratadine 10 mg tablet (Loradamed) 10 mg PO DAILY #10 tabs 09/14/21 10/22/21 olanzapine 15 mg tablet 1 tab PO PRN PRN 09/14/21 10/22/21 permethrin 5 % topical cream 1 applic topical Q14D 2 doses #60 09/24/21 10/22/21 grams Previous Rx's Medication Instructions Recorded clotrimazole-betamethasone 1 1 applic topical BID #30 mL 09/14/21 %-0.05 % lotion diphenhydramine HCl 25 mg capsule 25 mg PO Q6H #100 caps 09/14/21 (Benadryl) loratadine 10 mg tablet (Loradamed) 10 mg PO DAILY #10 tabs 09/14/21 permethrin 5 % topical cream 1 applic topical Q14D 2 doses #60 09/24/21 grams Allergies Allergy/AdvReac Type Severity Reaction Status Date / Time No Known Allergies Allergy Unverified 09/14/21 23:12 General Stated Complaint: RashLesion BERNICE: 4 Review of Systems All systems reviewed & are unremarkable except as noted in HPI and below Constitutional Constitutional: Denies fever(s) Integumentary/Breasts Skin/Breast: Reports as per HPI PFSH All Active Problems Rash (Acute) Social History Smoking/Tobacco Use Status: Current every day Tobacco Type: cigarettes Smoking risk assessment performed?: Yes Alcohol Intake: former Drug use: Never Substance use type: does not use and former substance user Details: Patient is on Suboxone Do you feel safe at home: Yes Do you feel safe in your relationship?: Yes Exam Const General: cooperative and no acute distress HENMT Mouth: moist mucous membranes Eyes Conjunctivae: normal conjunctivae Sclera: normal sclerae Resp Auscultation: clear to auscultation bilaterally, no rales, no rhonchi and no wheezes Cardio Rate: regular rate and not tachycardic Rhythm: regular rhythm Heart Sounds: no murmurs GI Palpation: soft, not firm, no guarding, no masses, not rigid and nontender Skin General skin exam: no fluctuance and no induration Rashes: rashes noted (Circular 1-2 cm shallow ulcers sparsely distributed on his UEs, back, scalp) Neuro General: patient alert, patient awake and tone normal Extrem General: no edema Course Vital Signs Vital signs: Vital Signs Temperature 36.8 C 10/22/21 22:39 Pulse 104 H 10/22/21 22:39 Respiratory Rate 19 10/22/21 22:39 Blood Pressure 124/73 10/22/21 22:39 Pulse Oximetry 96 10/22/21 22:39 Temperature 36.8 C 10/22/21 22:39 Temperature Source Temporal Artery Scan 10/22/21 22:39 Pulse 104 H 10/22/21 22:39 Respiratory Rate 19 10/22/21 22:39 Blood Pressure 124/73 10/22/21 22:39 Blood Pressure Position Supine 06/25/22 22:39 Pulse Oximetry 96 10/22/21 22:39 Oxygen Delivery Method Room Air 10/22/21 22:39 Oxygen Flow Rate 0 10/22/21 22:39 Pain Level 1 10/22/21 22:39
== END 2021-10-22 23:02 | disposition home or self-care (01) ==
PROVIDERS: Emergency Provider Student in an Organized Health Care Education/Training Program; PCP Nurse Practitioner Family
DX: R21 Rash and other nonspecific skin eruption (principal); F17.210 Nicotine dependence, cigarettes, uncomplicated; L98.429 Non-pressure chronic ulcer of back with unspecified severity; L98.499 Non-pressure chronic ulcer of skin of other sites with unspecified severity; Z86.19 Personal history of other infectious and parasitic diseases
CPT/HCPCS: 99281; 86592

== ENCOUNTER 2023-10-27 17:32 | Emergency (ER) | payer OTHER, SELFPAY ==
[2023-10-27] VITALS (68 sets, daily range): BP systolic 114–199; BP diastolic 69–120; PULSE 74–115; RESP 7–27; TEMP 36.9–38.4; O2SAT 92–99
--- NOTE | 2023-10-27 17:30 | DI.RAD_ITS ---
Exam(s) XR KNEE RT 2V AP,LAT XR TIB/FIB RT XR FEMUR RT EXAM: XR KNEE RT 2V AP,LAT and XR femur RT and XR tib/fib RT CLINICAL HISTORY: trauma. TECHNIQUE: 2D digital imaging was performed of the right femur, tib/fib and knee. Eight views obtai delfina. And lateral views were obtained. COMPARISON: No priors for comparison. FINDINGS: BONES: There is a markedly comminuted fracture involving the medial tibial plateau with marked impact ion of the fracture. There is resultant varus deformity. There is air in the suprapatellar joint sp thiago consistent with an open fracture. There is a soft tissue defect seen anterior to the tibial tube rosity on the lateral view. No bony destructive lesion is seen. JOINTS: Please see above under bones. SOFT TISSUE: There is soft tissue swelling around the leg and knee. IMPRESSION: Markedly comminuted depressed and displaced medial tibial plateau fracture. There is at least 1.5 cm suppression of the of the fracture fragments. Air is seen within the joint space consistent with an open fracture. There is a varus deformity. DATA REPOSITORY: RADIATION DOSE DELIVERED:
--- NOTE | 2023-10-27 17:30 | DI.RAD_ITS ---
Exam(s) XR PORTABLE CHEST AP EXAM: XR PORTABLE CHEST AP CLINICAL HISTORY: trauma TECHNIQUE: 2D digital imaging was performed of the chest. Two images was obtained. An AP view was o btained. COMPARISON: No exams were available for comparison FINDINGS: MEDIASTINUM: Normal. HEART: Normal. PULMONARY VASCULATURE: Normal. LUNGS: Clear. PLEURAL SPACE: No pleural effusion or pneumothorax. BONE:Within normal limits for the patient's age. OTHER FINDINGS:Normal. IMPRESSION: No acute pulmonary findings. DATA REPOSITORY: RADIATION DOSE DELIVERED:
--- NOTE | 2023-10-27 17:30 | DI.RAD_ITS ---
Exam(s) XR HAND LT COMPLETE EXAM: XR HAND LT COMPLETE CLINICAL HISTORY: trauma. TECHNIQUE: 2D digital imaging was performed of the left hand. Three views were obtained. AP, later al and oblique views were obtained. COMPARISON: No exams were available for comparison FINDINGS: BONES: There is an acute nondisplaced intra-articular fracture of the distal radius. There is a comm inuted fracture at the proximal metadiaphyseal junction of the proximal phalanx of the 4th finger. T here is angulation of the fracture dorsally with the apex directed anteriorly.. There is an oblique fracture through the proximal metaphysis of the proximal phalanx of the 3rd finger. The fracture mills s not appear to extend into the joint space. There is dorsal angulation of the distal fracture noted with the apex of the fracture directed anteriorly. There is also mild ulnar displacement of the dis rusty fracture.. No bony destructive lesion is seen. JOINTS: Please see the above discussion. SOFT TISSUE: There is soft tissue swelling. IMPRESSION: 1. Acute angulated and displaced fracture involving the proximal phalanx of the 3rd finger as describ ed above. 2. Acute comminuted fracture involving the proximal phalanx of the 4th finger as described above. 3. Acute nondisplaced intra-articular fracture involving the distal radius. Unexpected findings DATA REPOSITORY: RADIATION DOSE DELIVERED:
[2023-10-27] MEDS: ceFAZolin 2 GM/50 ML BAG IVPB (17:45)
[2023-10-27] MEDS: ACETAMINOPHEN 1,000 MG/100 ML BTL 400 MG IVPB (17:45)
[2023-10-27 17:54] LABS: Abs Immature Grans 0.05 10^3/uL (0.0-0.06); Absolute Basophil Count 0.11 10^3/uL (0.0-0.2); Absolute Lymphocyte Count 4.81 10^3/uL (1.2-3.4); Absolute Monocyte Count 0.59 10^3/uL (0.1-0.8); Basophils % 0.8 %; Eosinophils % 3.6 %; HCT 39.1 % (40.0-50.0); HGB 13.4 g/dL (13.5-17.5); Immature Grans % 0.4 %; Lymphocytes % 34.3 %; MCH 29.6 pg (27.0-33.0); MCHC 34.3 % (32.0-36.0); MCV 86 fL (80-95); MPV 9.4 fL (8.0-11.0); Monocytes % 4.2 %; Neutrophils % 56.7 %; Platelet Count 363 10^3/uL (130-400); RBC 4.53 10^6/uL (4.36-5.78); RDW 13.3 % (11.8-14.1); RDW-SD 41.7 fL; WBC 14.03 10^3/uL (4.4-10.8)
[2023-10-27 17:56] LABS: Absolute Eosinophil Count 0.51 10^3/uL (0.0-0.7); Absolute Neutrophil Count 7.96 10^3/uL (1.2-6.7)
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
[2023-10-27 18:08] LABS: Prothrombin Time 10.5 sec (9.1-11.1)
[2023-10-27 18:10] LABS: ALT 16 U/L (16-63); AST 25 U/L (15-37); Albumin 3.9 g/dL (3.4-5.0); Alkaline Phosphatase 62 U/L (46-116); Anion Gap 12.6 mmol/L (3-11); BUN 21 mg/dL (7-18); Bilirubin, Total 0.29 mg/dL (0.2-1.0); CO2 23.4 mmol/L (21.0-32.0); CREATININE 0.9 mg/dL (0.70-1.30); Calcium 8.8 mg/dL (8.5-10.1); Chloride 103 mmol/L (98-107); Estimated GFR 108.01 (mL/min/1.73m2); Glucose 125 mg/dL (74-106); Potassium 3.6 mmol/L (3.5-5.1); Sodium 139 mmol/L (136-145); Total Protein 7.9 g/dL (6.4-8.2)
--- NOTE | 2023-10-27 18:36 | DI.VRAD_ITS ---
PROCEDURE INFORMATION: Exam: XR Right Knee Exam date and time: 10/27/2023 5:47 PM Age: 43 years old Clinical indication: Injury or trauma; Blunt trauma; Knee; Right TECHNIQUE: Imaging protocol: Radiologic exam of the right knee. Views: 3 views. COMPARISON: CR XR TIB/FIB RT 10/27/2023 5:46 PM FINDINGS: Bones/joints: Acute comminuted fracture of the medial tibial plateau; dominant fragments likely depressed by at least 1 cm with additional fragments distracted cephalad by 12 mm. Generally swelling, lipohemarthrosis likely present with some gas in the joint. Mild varus deformity of the knee. Mild impaction of fracture fragments with lateral femoral condyle suspected. No gracy dislocation. Soft tissues: Fracture fragments appear open to a soft tissue laceration/lesion anteriorly and medially. Trace gas in the lateral joint space, potential slight widening of the lateral joint space. IMPRESSION: Acute comminuted , open fracture of the medial tibial plateau with details as above. Dictated and Authenticated by: Cait Matute MD. Ordering:STEPHANIE Salinas MD
--- NOTE | 2023-10-27 18:37 | DI.VRAD_ITS ---
PROCEDURE INFORMATION: Exam: XR Right Femur Exam date and time: 10/27/2023 5:48 PM Age: 43 years old Clinical indication: Injury or trauma; Blunt trauma; Thigh or upper leg; Right TECHNIQUE: Imaging protocol: Radiologic exam of the right femur. Views: 2 views. COMPARISON: CR XR KNEE RT 2V AP,LAT 10/27/2023 5:47 PM FINDINGS: Bones/joints: The femur appears intact. Bony superimposition of distracted medial tibial plateau fracture fragments distally. Soft tissues: Soft tissue swelling distally. Please see knee films IMPRESSION: The femur appears intact. Bony superimposition of distracted medial tibial plateau fracture fragments distally. Dictated and Authenticated by: Cait Matute MD. Ordering:STEPHANIE Salinas MD
--- NOTE | 2023-10-27 18:37 | DI.VRAD_ITS ---
PROCEDURE INFORMATION: Exam: XR Right Tibia and Fibula Exam date and time: 10/27/2023 5:46 PM Age: 43 years old Clinical indication: Injury or trauma; Blunt trauma; Lower leg; Right TECHNIQUE: Imaging protocol: Radiologic exam of the right tibia and fibula. Views: 2 views. COMPARISON: No relevant prior studies available. FINDINGS: Bones/joints: Please see knee films regarding the proximal tibial fracture. The remainder of the tibia and fibula are intact. Soft tissues: Soft tissue swelling proximally. IMPRESSION: 1. Please see knee films regarding the proximal tibial fracture. 2. The remainder of the tibia and fibula are intact. Dictated and Authenticated by: Cait Matute MD. Ordering:MileMACKENZIE Salinas MD
--- NOTE | 2023-10-27 18:38 | DI.VRAD_ITS ---
PROCEDURE INFORMATION: Exam: XR Left Hand Exam date and time: 10/27/2023 6:01 PM Age: 43 years old Clinical indication: Injury or trauma; Blunt trauma (contusions or hematomas); Hand; Left TECHNIQUE: Imaging protocol: Radiologic exam of the left hand. Views: 3 or more views. COMPARISON: No relevant prior studies available. FINDINGS: Bones/joints: Acute intra-articular fracture, 3rd proximal phalangeal base, with moderate apex volar angulation and mild apex medial angulation. Acute comminuted fracture, 4th proximal phalanx without definite intra-articular extension; moderate apex volar angulation and mild apex medial angulation. D IP and PIP joints are not optimally assessed due to digital overlap. No definite additional fracture. No gracy dislocation. Soft tissues: Generalized soft tissue swelling. IMPRESSION: 1. Acute intra-articular fracture, 3rd proximal phalangeal base, with moderate apex volar angulation and mild apex medial angulation. 2. Acute comminuted fracture, 4th proximal phalanx without definite intra-articular extension; moderate apex volar angulation and mild apex medial angulation. Dictated and Authenticated by: Cait Matute MD. Ordering:[facility] Aga Salinas MD
--- NOTE | 2023-10-27 18:38 | DI.VRAD_ITS ---
PROCEDURE INFORMATION: Exam: XR Chest Exam date and time: 10/27/2023 6:03 PM Age: 43 years old Clinical indication: Injury or trauma; Blunt trauma (contusions or hematomas) and other: Trauma; Patient HX: Trauma to R leg, L hand TECHNIQUE: Imaging protocol: Radiologic exam of the chest. Views: 1 view. COMPARISON: No relevant prior studies available. FINDINGS: Lungs: No consolidation. Pleural spaces: No pleural effusion. No pneumothorax. Heart/Mediastinum: No cardiomegaly. Bones/joints: No acute fracture. IMPRESSION: Negative portable chest. Dictated and Authenticated by: Cait Matute MD. Ordering:[facility] Aga Salinas MD
[2023-10-27 18:43] LABS: Creatine Kinase 125 U/L (39-308)
[2023-10-27] MEDS: HYDROmorphone 2 MG/ML SYR IVP ×2 (18:48→19:51)
== END 2023-10-27 19:50 | disposition short-term general hospital (02) ==
LOC: ER 19:07
PROVIDERS: Emergency Provider Emergency Medicine; PCP Nurse Practitioner Family
DX: S82.141B Displaced bicondylar fracture of right tibia, initial encounter for open fracture type I or II; W37.8XXA Explosion and rupture of other pressurized tire, pipe or hose, initial encounter; Y93.89 Activity, other specified; S62.613A Displaced fracture of proximal phalanx of left middle finger, initial encounter for closed fracture; S62.615A Displaced fracture of proximal phalanx of left ring finger, initial encounter for closed fracture; S20.211A Contusion of right front wall of thorax, initial encounter
CPT/HCPCS: 29125; 29505; 36415; 73552; 80053; 82550; 86850; 86900; 86901; 90471; 90715; 96365; 96368; 96375; 96376; 99284; 71045; 73130; 73560; 73590; 85025; 85610; 99285; J0131; J0690; J1170

== ENCOUNTER 2024-04-21 15:39 | Emergency (ER) | payer OTHER, SELFPAY ==
[2024-04-21 15:43] VITALS: BP 135/85; PULSE 93; RESP 15; TEMP 36.8; O2SAT 97
--- NOTE | 2024-04-21 16:05 | ED.GENADUL_ITS ---
Discharge Plan Disposition Patient Disposition: Home Discharge Details Clinical Impression: Cellulitis Primary Care Provider: Leslie Shane ED Provider: Sofiya Blank Home Meds and New Rx's Prescriptions: New doxycycline hyclate 100 mg capsule 100 mg PO BID Qty: 12 0RF No Action dexmethylphenidate 40 mg capsule,ER biphasic 50-50 40 cap PO DAILY Patient Comments: 40 mg in am and 25 mg in afternnon buprenorphine-naloxone [Suboxone] 4-1 mg film 1 film sublingual DAILY Patient Comments: PLACE ONE FILM UNDER THE TONGUE EVERY DAY diphenhydramine HCl [Benadryl] 25 mg capsule 25 mg PO Q6H Qty: 100 0RF loratadine [Loradamed] 10 mg tablet 10 mg PO DAILY Qty: 10 0RF clotrimazole-betamethasone 1-0.05 % lotion 1 applic topical BID Qty: 30 0RF Discharge Instructions Additional Instructions: Please call [facility] orthopedics first thing in the morning to schedule follow-up appointment for reevaluation of your cellulitis. Your labs are reassuring, your inflammatory markers were elevated as expected. These may be redrawn outpatient to monitor treatment and response to treatment. I have prescribed an antibiotic called doxycycline. Please take for the full course as prescribed. Elevate your arm above heart level to help with swelling and discomfort. You may use Tylenol ibuprofen as needed for discomfort. Return to emergency care if you develop new fever/chills, numbness/tingling in your hand or lower arm, difficulty bending your elbow, worsening of the redness/swelling, or if you are very worried and need to be rechecked again immediately Referrals: [facility] [Provider Group] Discharge Data Discharge Date/Time-TO BE ENTERED AT DEPARTURE: 04/21/24 17:36 HPI General Date/Time Provider Initiated Documentation: 04/21/24 15:44 . HPI Narrative: Derik is a 44 year old male who presents to the emergency department today for evaluation of R forearm swelling/redness. He reports he fell a week and a half ago, landing on his R arm. Denies any pain or subsequent issues. 4 days ago he was carrying some stacks of paper at work, these are impregnated with a sharp glue that his skin finds very irritating. He felt a pinch on his forearm, thinks he may have been pricked with this. Since then he has had rapidly increasing swelling, warmth, and discomfort to his left forearm along the ulnar aspect just distal to the elbow. Reports he has been feeling a little bit more fatigued than usual lately, but otherwise feeling well. He denies associated fever/chills, general malaise, nausea, distal numbness/tingling, difficulty with range of motion to elbow. No drainage from this lesion. 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 Physical exam remarkable for significant swelling, warmth, and erythema to the proximal forearm (approx 4 cm x 3 cm) along the volar aspect on the ulnar side. Full painless range of motion of elbow, no swelling to the olecranon or radial side of the elbow. +CMS to fingers, distal pulses intact. D/dx includes but is not limited to: Abscess, cellulitis. Basic labs drawn and x-ray ordered to rule out bony pathology. No red flags concerning for serious systemic illness requiring IV antibiotics or emergent diagnostic imaging at this time. Patient does not meet SIRS criteria. POCUS exam performed with Dr. Duarte at bedside. No abscess visualized. I independently interpreted the following tests: CBC and BMP reassuring, only mild leukocytosis noted with white cell count 11.58. CRP and ESR both elevated, consistent with cellulitis. Will treat for cellulitis with doxycycline to provide MRSA coverage. Recommend close follow-up with orthopedics for further evaluation/management; referral placed by Marya unit educator. While in the emergency department, Derik received first dose of antibiotics. Reviewed discharge instructions with patient, including symptomatic management, follow-up recommendation, and red flags indicating need for return to emergency care Related Data Home Medications ?Medication ?Instructions ?Recorded ?Confirmed buprenorphine 4 mg-naloxone 1 mg 1 film sublingual DAILY 09/14/21 04/21/24 sublingual film (Suboxone) clotrimazole-betamethasone 1 1 applic topical BID #30 mL 09/14/21 04/21/24 %-0.05 % lotion dexmethylphenidate 40 mg 40 cap PO DAILY 09/14/21 04/21/24 capsule,extended release -78 diphenhydramine HCl 25 mg capsule 25 mg PO Q6H #100 caps 09/14/21 04/21/24 (Benadryl) loratadine 10 mg tablet (Loradamed) 10 mg PO DAILY #10 tabs 09/14/21 04/21/24 doxycycline hyclate 100 mg capsule 100 mg PO BID #12 caps 04/21/24 Previous Rx's ?Medication ?Instructions ?Recorded clotrimazole-betamethasone 1 1 applic topical BID #30 mL 09/14/21 %-0.05 % lotion diphenhydramine HCl 25 mg capsule 25 mg PO Q6H #100 caps 09/14/21 (Benadryl) loratadine 10 mg tablet (Loradamed) 10 mg PO DAILY #10 tabs 09/14/21 doxycycline hyclate 100 mg capsule 100 mg PO BID #12 caps 04/21/24 Allergies Allergy/AdvReac Type Severity Reaction Status Date / Time No Known Allergies Allergy Unverified 04/21/24 15:46 General Stated Complaint: RashLesion BERNICE: 4 Review of Systems Narrative: see HPI Exam Const General: cooperative, healthy appearing, comfortable, no acute distress, well developed and well groomed Orientation: alert Resp Effort & Inspection: normal respiratory effort and able to speak in complete sentences Skin Other: 4 cm x 3 cm area of erythematous, tender, and warm area to medial right AC, this is pitting with palpation. Neuro General: patient alert, patient oriented x3, tone normal, moves all extremities and no focal motor deficits Motor: muscle tone normal throughout and strength 5/5 throughout Sensory Exam: no sensory deficits noted Extrem Right upper extremity: full ROM, normal capillary refill and elbow/forearm Details: normal ROM, distal pulses intact and other (See above); no ecchymosis, no crepitus, no foreign bodies, no penetrating wound and no deformity Course Vital Signs Vital signs: Vital Signs Temperature 36.8 C 04/21/24 15:43 Pulse 93 H 04/21/24 15:43 Respiratory Rate 15 04/21/24 15:43 Blood Pressure 135/85 04/21/24 15:43 Pulse Oximetry 97 04/21/24 15:43 Temperature 36.8 C 04/21/24 15:43 Pulse 93 H 04/21/24 15:43 Respiratory Rate 15 04/21/24 15:43 Blood Pressure 135/85 04/21/24 15:43 Blood Pressure Position Sitting 04/21/24 15:43 Pulse Oximetry 97 04/21/24 15:43 Oxygen Delivery Method Room Air 04/21/24 15:43 Oxygen Flow Rate 0 04/21/24 15:43 Medical Decision Making Quality:SDOH Health Related Social Needs: No Data to Display PFSH All Active Problems (Updated 04/21/24 @ 17:23 by Sofiya Odell) Cellulitis (Acute) Social History Smoking/Tobacco Use Status: Current every day Tobacco Type: cigarettes Smoking risk assessment performed?: Yes Alcohol Intake: former Drug use: Never Substance use type: does not use and former substance user Details: Patient is on Suboxone Housing: apartment Do you feel safe at home: Yes Do you feel safe in your relationship?: Yes
--- NOTE | 2024-04-21 16:07 | W.EDPROG ---
Date of service: 04/21/24 Time of Service: 16:07 Medical Decision Making I evaluated this patient in conjunction with his advanced practice provider. Please see her note for complete details. This patient had a bedside ultrasound that was not consistent with abscess. He did have an indurated approximately 4 x 3 cm tender erythematous and warm area to his medial right dominant antecubital fossa. He denies recent IV drug use. He will receive assessment of his inflammatory markers prior to outpatient orthopedic follow-up on antibiotic coverage geared towards MRSA. We discussed that he should return to the ED if he develop fevers worsening swelling or pain or if you have any other concerns. I considered sepsis however the patient was not tachycardic hypotensive nor febrile and denied systemic symptoms. He will receive MRSA coverage with doxycycline and empiric strep coverage with cefpodoxime. Quality:SDNC Health Related Social Needs: No Data to Display Discharge Plan Disposition Patient Disposition: Home Discharge Details Clinical Impression: Cellulitis Primary Care Provider: Leslie Shane ED Provider: Sofiya Blank Home Meds and New Rx's Prescriptions: New doxycycline hyclate 100 mg capsule 100 mg PO BID Qty: 12 0RF No Action dexmethylphenidate 40 mg capsule,ER biphasic 50-50 40 cap PO DAILY Patient Comments: 40 mg in am and 25 mg in afternnon buprenorphine-naloxone [Suboxone] 4-1 mg film 1 film sublingual DAILY Patient Comments: PLACE ONE FILM UNDER THE TONGUE EVERY DAY diphenhydramine HCl [Benadryl] 25 mg capsule 25 mg PO Q6H Qty: 100 0RF loratadine [Loradamed] 10 mg tablet 10 mg PO DAILY Qty: 10 0RF clotrimazole-betamethasone 1-0.05 % lotion 1 applic topical BID Qty: 30 0RF Discharge Instructions Additional Instructions: Please call [facility] orthopedics first thing in the morning to schedule follow-up appointment for reevaluation of your cellulitis. Your labs are reassuring, your inflammatory markers were elevated as expected. These may be redrawn outpatient to monitor treatment and response to treatment. I have prescribed an antibiotic called doxycycline. Please take for the full course as prescribed. Elevate your arm above heart level to help with swelling and discomfort. You may use Tylenol ibuprofen as needed for discomfort. Return to emergency care if you develop new fever/chills, numbness/tingling in your hand or lower arm, difficulty bending your elbow, worsening of the redness/swelling, or if you are very worried and need to be rechecked again immediately Referrals: [facility] [Provider Group] Discharge Data Discharge Date/Time-TO BE ENTERED AT DEPARTURE: 04/21/24 17:36 POCUS Exam (ED) Limited Soft Tissue Exam DATE OF EXAM: 04/21/24 TIME OF EXAM: 16:23 PROVIDER THAT PERFORMED THE STUDY: Augustin Duarte LOCATION OF EXAM: Upper extremity/right REASON FOR EXAM: Swelling Exam Complete INCIDENTAL FINDINGS: Cobblestoning no definitive anechoic fluid collection. No obvious abscess.
[2024-04-21 16:42] LABS: Abs Immature Grans 0.04 10^3/uL (0.0-0.06); Absolute Basophil Count 0.07 10^3/uL (0.0-0.2); Absolute Eosinophil Count 0.47 10^3/uL (0.0-0.7); Absolute Lymphocyte Count 2.55 10^3/uL (1.2-3.4); Absolute Monocyte Count 0.75 10^3/uL (0.1-0.8); Basophils % 0.6 %; Eosinophils % 4.1 %; HCT 38.6 % (40.0-50.0); Immature Grans % 0.3 %; MCH 29.6 pg (27.0-33.0); MCHC 33.7 % (32.0-36.0); MCV 88 fL (80-95); MPV 9.2 fL (8.0-11.0); Monocytes % 6.5 %; Neutrophils % 66.5 %; Platelet Count 326 10^3/uL (130-400); RBC 4.39 10^6/uL (4.36-5.78); RDW 13.4 % (11.8-14.1); RDW-SD 43.5 fL; WBC 11.58 10^3/uL (4.4-10.8)
[2024-04-21 16:45] LABS: ESR 42 mm/hr (0-15)
--- NOTE | 2024-04-21 16:45 | DI.RAD_ITS ---
Exam(s) XR ELBOW RT COMPLETE EXAM: XR ELBOW RT COMPLETE CLINICAL HISTORY: Swelling, cellulitis, history of fall. TECHNIQUE: 2D digital imaging was performed of the left elbow. Three images were obtained. AP, lat eral and oblique views were obtained. COMPARISON: No exams were available for comparison FINDINGS: BONES: No acute fracture is present. No bony destructive lesion is seen. JOINTS: The elbow is normally aligned. No joint effusion is seen. SOFT TISSUE: There is mild soft tissue swelling around the elbow. IMPRESSION: No acute fracture or dislocation. No joint effusion. DATA REPOSITORY: RADIATION DOSE DELIVERED:
[2024-04-21 16:54] LABS: Anion Gap 7.9 mmol/L (3-11); BUN 15 mg/dL (7-18); C-Reactive Protein 2.79 mg/dL (<or=0.5); CO2 27.1 mmol/L (21.0-32.0); CREATININE 0.7 mg/dL (0.70-1.30); Calcium 8.7 mg/dL (8.5-10.1); Chloride 106 mmol/L (98-107); Glucose 92 mg/dL (74-106); Potassium 4.1 mmol/L (3.5-5.1); Sodium 141 mmol/L (136-145)
[2024-04-21] MEDS: Doxycycline Hyclate 100 MG, 2 CAPS/BTL PO (17:30)
[2024-04-21] MEDS: Doxycycline Hyclate 100 MG CAP PO (17:31)
[2024-04-21 17:34] VITALS: BP 128/76; O2SAT 98
--- NOTE | 2024-04-21 20:21 | ED.FU.B_ITS ---
Follow Up Plan: Decided to add on cefpodoxime for staph coverage. I called Derik and updated him, advised him that he will be taking 2 antibiotics twice a day now. He has not yet picked up the doxycycline, will sisal picker both prescriptions in the morning. He reports that he has checked out his infection and it has not spread outside the borders of the demarcated area that the nurse marked with surgical marker. Updated him on plan of care, he is agreeable with plan and will return to emergency care if any concerns or worsening sx
== END 2024-04-21 17:36 | disposition home or self-care (01) ==
PROVIDERS: Emergency Provider Nurse Practitioner Family; PCP Nurse Practitioner Family
DX: L03.113 Cellulitis of right upper limb (principal); F17.210 Nicotine dependence, cigarettes, uncomplicated
CPT/HCPCS: 00123; 36415; 76882; 80048; 85652; 99284; 73080; 85025; 86140